=== PATIENT | female | born 1955 | race Caucasian/White ===

== ENCOUNTER → 2016-12-21 | Outpatient (CLI) | payer BC ==
[~2016-12-21] MED LIST: ASPIRIN E.C. 8181 MG PO; COZAAR100 MG PO; LEADER FIBER1 POW PO; LEVOXYL0.112 MG PO; MULTI VITAMINS1 TAB PO; NATURE'S BLEND500 M1 PO; NORCO 325 MG-7.1 TAB PO; PRAVACHOL 20MG20 MG PO; PRISTIQ 50 MG T50 MG PO; VITAMIN D32000 I1 PO
== END ==
LOC: MC.RAD 12:38
DX: Z12.31 Encounter for screening mammogram for malignant neoplasm of breast (principal); Z90.12 Acquired absence of left breast and nipple

== ENCOUNTER 2017-02-22 05:55 | Day surgery (SDC) | payer BC ==
[~2017-02-22] VITALS: Ht 170.2 cm; Wt 91.5 kg
[2017-02-22 06:25] VITALS: BP 147/90; PULSE 99; TEMP 98.2
[2017-02-22] MEDS ORDERED: PROBIOTIC FORMU1 CAP PO (06:32)
[2017-02-22] MEDS ORDERED: PRAVACHOL10 MG PO (06:34)
[2017-02-22] MEDS ORDERED: VITAMIN B COMPL1 SGL PO (06:36)
[2017-02-22] MEDS ORDERED: ARIMIDEX1 MG PO (06:37)
[2017-02-22 07:30] VITALS: BP 140/88; PULSE 89; TEMP 98
[2017-02-22 07:45] VITALS: BP 109/82; PULSE 77
[2017-02-22 14:04] VITALS: BP 118/76; PULSE 80
== END 2017-02-22 08:00 | disposition home or self-care (01) ==
LOC: SDCO 05:55
DX: Z12.11 Encounter for screening for malignant neoplasm of colon (principal); D12.2 Benign neoplasm of ascending colon; D12.8 Benign neoplasm of rectum; K57.30 Diverticulosis of large intestine without perforation or abscess without bleeding; E78.00 Pure hypercholesterolemia, unspecified; E03.9 Hypothyroidism, unspecified; I10 Essential (primary) hypertension
CPT/HCPCS: OP; J2250; J2405; J3010; J7030

== ENCOUNTER → 2017-12-23 | Outpatient (CLI) | payer BC ==
[~2017-12-23] MED LIST changes: +ARIMIDEX1 MG PO; +PRAVACHOL10 MG PO; +PROBIOTIC FORMU1 CAP PO; +VITAMIN B COMPL1 SGL PO
== END ==
LOC: MC.RAD 14:26
DX: Z12.31 Encounter for screening mammogram for malignant neoplasm of breast (principal); Z98.890 Other specified postprocedural states

== ENCOUNTER → 2018-12-24 | Outpatient (CLI) | payer BC | LOC: MC.RAD 12:46 | DX: Z12.31 Encounter for screening mammogram for malignant neoplasm of breast (principal); Z98.890 Other specified postprocedural states ==

== ENCOUNTER → 2019-12-28 | Outpatient (CLI) | payer MEDICARE, OTHER | LOC: MC.RAD 10:21 | DX: Z12.31 Encounter for screening mammogram for malignant neoplasm of breast (principal) ==

== ENCOUNTER → 2021-01-03 | Outpatient (CLI) | payer MEDICARE, OTHER | LOC: MC.RAD 10:24 | DX: Z12.31 Encounter for screening mammogram for malignant neoplasm of breast (principal) ==

== ENCOUNTER → 2022-01-10 | Outpatient (CLI) | payer MEDICARE, OTHER | LOC: MC.RAD 10:33 | DX: Z12.31 Encounter for screening mammogram for malignant neoplasm of breast (principal) ==

== ENCOUNTER 2022-03-16 08:55 | Day surgery (SDC) | payer MEDICARE, OTHER ==
[~2022-03-16] VITALS: Ht 170.2 cm; Wt 85.8 kg
[2022-03-16] MEDS ORDERED: PRAVACHOL 40MG40 MG PO (09:24)
[2022-03-16] MEDS ORDERED: GLUCOPHAGE XR500 M1 PO (09:24)
[2022-03-16 09:55] VITALS: BP 123/80; PULSE 80; TEMP 97.5
[2022-03-16 10:33] VITALS: BP 104/69; PULSE 82; TEMP 97.4
[2022-03-16 10:48] VITALS: BP 112/76; PULSE 60
[2022-03-16 10:52] VITALS: BP 104/66; PULSE 87
--- NOTE | 2022-03-16 11:10 | NUR ---
1033 RETURNS TO ROOM 3 PER CART. AWAKE, ALERT. AMBULATES TO RECLINER WITH STAND BY ASSIST. VITAL SIGNS OBTAINED. DENIES NAUSEA OR ABD PAIN, CALL LIGHT AT SIDE. IN ROOM. 1045 TOLERATES PO JUICE WITHOUT NAUSEA. 1052 DR. AHN HERE TO VISIT WITH PATIENT. 1100 DISCHARGE INSTRUCTIONS REVIEWED WITH PATIENT VERBALIZING UNDERSTANDING. COPY PLACE IN DISCHARGE FOLDER. 1114 AFTER DRESSING SELF. PATIENT DISCHARGED PER WHEELCHAIR TO VEHICLE BEING DRIVEN BY
== END 2022-03-16 11:14 | disposition home or self-care (01) ==
LOC: SDCO 08:55
DX: Z12.11 Encounter for screening for malignant neoplasm of colon (principal); Z86.010 Personal history of colon polyps; K57.30 Diverticulosis of large intestine without perforation or abscess without bleeding
CPT/HCPCS: J2704; J7120

== ENCOUNTER → 2024-02-07 | Outpatient (CLI) | payer MEDICARE, OTHER ==
[~2024-02-07] MED LIST changes: +GLUCOPHAGE XR500 M1 PO; +PRAVACHOL 40MG40 MG PO
== END ==
LOC: MC.RAD 12:54
DX: Z12.31 Encounter for screening mammogram for malignant neoplasm of breast (principal)